=== PATIENT | female | born 1945 ===

== ENCOUNTER 2025-01-22 05:31 | Day surgery (SDC) | payer OTHER ==
[2025-01-14 07:35] LABS: HEMATOCRIT 34.1 % (36.0-45.00); HEMOGLOBIN 11.4 g/dL (12.0-15.00); MEAN CELL VOLUME 98.7 fL (80.00-100.00); MEAN CORPUSCULAR HEMOGLOBIN 32.9 pg (27.00-32.0); MEAN CORPUSCULAR HGB CONC 33.3 g/dl (32.0-36.0); PLATELET COUNT 239 K/uL (150-450); RED BLOOD COUNT 3.46 M/uL (4.00-6.00); RED CELL DISTRIBUTION WIDTH 15.4 % (11.5-14.5)
[2025-01-14 07:39] VITALS: BP 161/78
[2025-01-14 07:58] LABS: INR 0.94; PARTIAL THROMBOPLASTIN TIME 24.1 SECONDS (22.0-34.0); PROTHROMBIN TIME 10.3 SECONDS (9.0-11.5)
[2025-01-14 08:06] LABS: CALCIUM 8.7 mg/dL (8.5-10.1); CREATININE SERUM 1.11 mg/dL (0.55-1.02); GFR 47.54; POTASSIUM 4.57 mEq/L (3.5-5.1)
[2025-01-14 08:44] LABS: URINE APPEARANCE Cloudy; URINE BILIRRUBIN Negative (NEGATIVE); URINE BLOOD Negative; URINE COLOR Yellow; URINE GLUCOSE Negative (NEGATIVE); URINE KETONE Negative (NEGATIVE); URINE LEUKOCYTE Negative; URINE NITRATE Negative; URINE PROTEIN Negative (NEGATIVE); URINE UROBILINOGEN 0.2 E.U./dl
[2025-01-14 08:49] LABS: URINE BACTERIA 26.8 uL (0.0-1933); URINE EPITHELIAL CELLS 5.1 uL (0.0-38.8); URINE WBC 3.9 uL (0.0-23.2)
[2025-01-14 08:56] LABS: URINE CAST 0.73 uL (0.0-1.40); URINE RBC 0.8 uL (0.0-20.8)
[~2025-01-22] VITALS: Ht 154.9 cm; Wt 61.2 kg
[~2025-01-22 05:31] MED LIST: LEVOXYL100 MCG PO
[2025-01-22] MEDS ORDERED: ENOXAPARIN SODIUM 40 MG/0.4 ML SYRINGE SUBCUTANEO ONE ×2 (07:57→11:30)
[2025-01-22] MEDS ORDERED: CEFTRIAXONE SODIUM 2,000 MG VIAL ONE (07:57)
[2025-01-22] MEDS ORDERED: METRONIDAZOLE/SODIUM CHLORIDE 500 MG/100 ML PIGGYBACK IV ONE ×2 (08:49→11:30)
[2025-01-22] MEDS ORDERED: CEFTRIAXONE SODIUM 2,000 MG VIAL IV ONE (11:30)
[2025-01-22] MEDS ORDERED: PERCOCET 5-3251 EACH PO (14:14)
[2025-01-22] MEDS ORDERED: NEURONTIN300 MG PO (14:15)
[2025-01-22] MEDS ORDERED: CELEBREX200MG PO (14:15)
[2025-01-22] MEDS ORDERED: POLY119PG PO (14:15)
[2025-01-22] MEDS ORDERED: MORPHINE SULFATE 4 MG/ML VIAL IV ONE (15:55)
== END 2025-01-22 17:40 | disposition home or self-care (01) ==
LOC: CIR.AMB 05:31
PROVIDERS: ATTEND Surgery
DX: K40.90 Unilateral inguinal hernia, without obstruction or gangrene, not specified as recurrent (principal); E03.8 Other specified hypothyroidism
CPT/HCPCS: 49650; C1781